=== PATIENT | female | born 1925 | race Caucasian/White ===

== ENCOUNTER 2017-02-28 17:02 | Inpatient (IN) | payer MEDICARE ==
--- NOTE | ~2017-02-28 | DS ---
Unit #: [id number] #: [id number] Patient: PRISCILA PEREZ [id number] [address] [address] [id number] MR#: [id number] NAME: PRISCILA PEREZ ROOM: 229 Age: 89 Sex: F Admission Date: 02/28/2017 : 1925 Discharge Date: 03/03/2017 Attending Physician: Matt Rasmussen M.D. Primary Care Physician: Thi Ordaz M.D. DISCHARGE SUMMARY ADDENDUM Please see "above" discharge summary for complete details of hospital course. Upon discharge, PT and OT evaluated the patient. She was noted to be very unsteady on gait. Therefore, both services recommended rehab at time of discharge, as they felt as though residing at home alone was not a safe disposition for her. Therefore, appropriate arrangements will be made for the patient to be discharged to a rehab facility once a bed is available. The remainder of her discharge medications, as well as hospital course, remains unchanged. Dictated by... Houston Morrison/jez TD: 03/04/2017 11:09 JOB #: [id number] DISCHARGE SUMMARY Page 1 of 1 X Matt Rasmussen MD DISCHARGE SUMMARY
--- NOTE | ~2017-02-28 | CT71 ---
[facility] A Service of [facility] RADIOLOGY TEXT RESULTS PATIENT: PRISCILA PEREZ LOCATION: [facility] : [birth year] UNIT #: [id number] AGE: [address]: Fan Oneill MD SEX: F ORDER DR: [id number] [facility] [address]. [place], [place] [address] [id number] E MR#: [id number] Acc #: [id number] NAME: PRISCILA PEREZ. : 1925 SEX: F STUDY DATE/TIME: 02/28/2017 18:29 UNIT: [facility] ROOM: STUDY DESCRIPTION: CT Head Wo Contrast Attending Physician: Javan Rivera M.D. Ordering Physician: Javan Rivera M.D. Primary Care Physician: Thi Ordaz M.D. MEDICAL IMAGING REPORT This report is preliminary unless electronic signature is present EXAM CT of abdomen and pelvis, 02/28. INDICATION Mental status changes with weakness and vomiting that started today. COMPARISON None. TECHNIQUE This CT exam was performed with one or more of the following radiation dose reduction techniques: automatic exposure control, adjustment of mA and/or kV according to patient size, and iterative reconstruction. FINDINGS Axial images were obtained from the base of the vertex without contrast. Ventricular size and configuration are normal. There is chronic small vessel ischemic disease in the white matter. There is an old left frontal infarct. There is no acute infarct or hemorrhage. There are no masses. Atherosclerotic calcifications are present in the carotid siphons. There is no skull fracture. Paranasal sinuses are clear. IMPRESSION 1. No acute findings. There is an old left frontal infarct and there is some chronic small vessel ischemic disease in the white matter. Dictated by... Angelito Gonzalez Jr., M.D. THIS IS AN ELECTRONICALLY VERIFIED REPORT [facility] A Service of [facility] RADIOLOGY TEXT RESULTS PATIENT: PRISCILA PEREZ LOCATION: [facility] : [birth year] UNIT #: [id number] AGE: [address]: Fan Oneill MD SEX: F ORDER DR: Angelito Gonzalez Jr. MAbhijit at 02/28/2017 9:45 PM CHIDI/gale TD: 02/28/2017 21:26 JOB #: [id number] MEDICAL IMAGING REPORT Page 1 of 1 COPY
--- NOTE | ~2017-02-28 | HP ---
Unit #: [id number] #: [id number] Patient: PRISCILA PEREZ [id number] [address] [place], [place] [address] [id number] I MR#: [id number] NAME: PRISCILA PEREZ. ROOM: 569 Age: 89 Sex: F Admission Date: 02/28/2017 : 1925 Attending Physician: Zane Bhakta M.D. Primary Care Physician: Thi Ordaz M.D. HISTORY AND PHYSICAL CHIEF COMPLAINT Change in mental status, weakness, vomiting x1 episode. DISCUSSION This is an 89-year-old female who has a past medical history of atrial flutter - on Eliquis, history of anemia, rheumatoid arthritis - on prednisone, dementia, hypertension, old left frontal infarct on CT scan. She was brought to the emergency room by family. She was found to be confused today, as per family that was available at bedside. She has not been taking medication. Did not take medication today, has been confused. She has been having some tears to left lower extremity; was told cellulitis. She said she was given some antibiotics. She did not tolerate. The antibiotic was given yesterday. Today she got worse, and she was brought to the emergency room. She had a CT scan, which shows old left frontal infarct. She is alert, oriented x0 at this time. Most of the information is obtained through the old chart and talking with the family. PAST MEDICAL HISTORY 1. History of atrial flutter, on Eliquis. 2. Degenerative joint disease. 3. Dementia. 4. History of rheumatoid arthritis, on chronic prednisone. 5. History of hypertension. 6. Old left frontal infarct on CT scan. 7. History of perforated appendicitis with intraabdominal abscess status post exploratory laparotomy and appendectomy in April 2016. 8. History of anemia. PAST SURGICAL HISTORY 1. History of perforated appendicitis with intraabdominal abscess status post exploratory laparotomy and appendectomy in April 2016. 2. Cholecystectomy. 3. Tonsillectomy. SOCIAL HISTORY She lives at home alone. Her daughter usually visits her on a daily basis. She used to smoke, but she is not smoking any more. She quit many years ago. She does not drink alcohol. No other illicit drug use. FAMILY HISTORY Noncontributory. ALLERGIES Penicillin. Unit #: [id number] #: [id number] Patient: PRISCILA PEREZ MEDICATIONS FROM HOME 1. Maxzide 37.5/25 daily. 2. Eliquis 2.5 mg daily. 3. Hydrocodone 5/325 q.6 hours p.r.n. 4. Hydroxyzine 25 mg 1 tablet q.8 hours p.r.n. 5. Prednisone 5 mg daily. 6. Exelon patch q.24 hours. REVIEW OF SYSTEMS All review of systems is negative except as in history of present illness. PHYSICAL EXAMINATION GENERAL: Elderly female lying in bed comfortably, currently not in any distress. She is alert, awake, oriented x1 at this time; she is answering questions. CURRENT VITALS: Temperature is 99.7, heart rate 85, respirations 14, blood pressure 104/45, oxygen 100% on room air. HEENT: Extraocular muscles intact. Pupils equally reactive to light and accommodation. NECK: Supple. No JVD. No thyromegaly. LUNGS: Clear to auscultation. HEART: S1, S2. Regular rate and rhythm. ABDOMEN: Abdomen is soft, nontender, nondistended. Bowel sounds positive. EXTREMITIES: Left lower leg on posterior aspect calf area positive skin tear with clotted blood under the skin tear and mild edema. NEUROLOGIC: Unable to do neuro exam secondary to patient cooperation. DIAGNOSTIC STUDIES LABORATORY WORKUP: Troponin less than 0.01. UA - cloudy appearance, leukocyte esterase positive, WBC 10-25. Sodium 139, potassium 3.8, chloride 102, glucose 115, BUN 26, creatinine 1.9, amylase and lipase normal. LFT within normal limits. INR is 1. White count 10, hemoglobin 11, hematocrit 34, platelets 266. IMAGING: CT scan shows old left frontal infarct. Abdominal CT - Nonspecific bowel gas pattern. No infiltrate. ASSESSMENT AND PLAN 1. UTI. Will start the patient on IV Levaquin. 2. Change in mental status. Most likely secondary to UTI. 3. Left lower leg calf cellulitis with skin tear. Will start the patient on vancomycin. Pharmacy to dose. 4. Acute on chronic kidney disease. Will hold Lasix, give some IV fluids, reevaluate in the morning. 5. History of atrial flutter, on Eliquis. 6. History of anemia. 7. History of rheumatoid arthritis, on prednisone. 8. Dementia. 9. Hypertension. 10. Old left frontal infarct on CT scan. 11. DVT prophylaxis. She has been on Eliquis. Dictated by Fan Oneill M.D. Unit #: [id number] #: [id number] Patient: PRISCILA PEREZ GREGORIO/jez TD: 03/01/2017 08:28 JOB #: [id number] HISTORY AND PHYSICAL Page 1 of 1 X X HISTORY AND PHYSICAL
--- NOTE | ~2017-02-28 | CR2 ---
[facility] A Service of [facility] RADIOLOGY TEXT RESULTS PATIENT: PRISCILA PEREZ LOCATION: [facility] 569-01 : [birth year] UNIT #: [id number] AGE: [address]: Zane Bhakta MD SEX: F ORDER DR: [id number] [facility] [address] [facility]. [place], [place] [address] [id number] E MR#: [id number] Acc #: [id number] NAME: PRISCILA PEREZ : 1925 SEX: F STUDY DATE/TIME: 02/28/2017 17:59 UNIT: [facility] ROOM: STUDY DESCRIPTION: CR Abdomen Acute Series Attending Physician: Javan Rivera M.D. Ordering Physician: Javan Rivera M.D. Primary Care Physician: Thi Ordaz M.D. MEDICAL IMAGING REPORT This report is preliminary unless electronic signature is present EXAM Acute abdomen series, 3 views, 02/28/17. HISTORY Generalized weakness and vomiting beginning yesterday with generalized abdominal pain. Benign essential hypertension and shortness of breath. FINDINGS Three views of the chest and abdomen demonstrate normal bowel gas pattern with no evidence of bowel obstruction or free air. There is a moderate amount of fecal matter in the colon. Surgical clips right upper quadrant suggest prior cholecystectomy. Degenerative change and scoliosis of the thoracolumbar spine. The heart is normal in size. Poor inspiratory result and elevation of the right hemidiaphragm with discoid atelectasis at the lung bases. Lungs are otherwise clear. There are no pleural effusions. IMPRESSION 1. Nonspecific bowel gas pattern. No evidence of bowel obstruction or free air. 2. No active pulmonary disease. Dictated by... Chon Aguiar M.D. THIS IS AN ELECTRONICALLY VERIFIED REPORT Chon Aguiar M.D. at 03/01/2017 2:14 PM CLAUDE/gale TD: 02/28/2017 20:45 JOB #: [id number] [facility] A Service of [facility] RADIOLOGY TEXT RESULTS PATIENT: PRISCILA PEREZ LOCATION: [facility] 569-01 : [birth year] UNIT #: [id number] AGE: [address]: Zane Bhakta MD SEX: F ORDER DR: MEDICAL IMAGING REPORT Page 1 of 1 COPY
--- NOTE | ~2017-02-28 | DS ---
Unit #: [id number] #: [id number] Patient: PRISCILA MADISON [id number] [address] [place], [place] [address] [id number] I MR#: [id number] NAME: PRISCILA MADISON ROOM: 569 Age: 89 Sex: F Admission Date: 02/28/2017 : 1925 Discharge Date: 03/02/2017 Attending Physician: Matt Rasmussen M.D. Primary Care Physician: Thi Ordaz M.D. DISCHARGE SUMMARY REASON FOR ADMISSION Mental status change, weakness. HISTORY OF PRESENT ILLNESS/HOSPITAL COURSE The patient is an 89-year-old female with past medical history of atrial flutter/fibrillation on chronic anticoagulation, anemia, rheumatoid arthritis, as well as dementia, who resides at home alone. Apparently she was having difficulty ambulating. Patient's daughter who resides several home down the street came to check up on her mother and noted that she had profound weakness and subsequently brought her to the hospital for further evaluation. Daughter states that previously she had been seen twice in the emergency room secondary to lower extremity lacerations and/or chronic wounds, was told both time routine wound care was recommended and VNA services were following but no antibiotics were prescribed. She apparently took her mother to her primary care physician and was given a prescription for Levaquin I believe and subsequently started taking them and developed some vomiting after nausea for several hours, as well as profound weakness. While she was evaluated in the emergency room she was alert and oriented x0. She was profoundly weak and she underwent a CT head, which did not show any acute process. Did show a prior left frontal infarct. She was subsequently admitted for the same. She was placed on telemetry floor. Routine laboratory studies were ascertained. She was placed on vancomycin and Levaquin. Her wounds were assessed and appropriate dressing was placed. Laboratory studies were relatively unremarkable. He creatinine was 1.5 at the time of discharge, which likely represents the patient's baseline hemoglobin of 10.2. Her initial urinalysis was positive; however ultimately the urine culture did not yield any acute bacterial growth. At the present time she is alert and oriented x2, which appears to be the baseline for the patient. I did speak to the patient's daughter, Ms. Smart, as well. We will have physical therapy evaluate Ms. Madison prior to discharge. At this point in time and after physical therapy clears the patient she will be discharged home. FINAL DISCHARGE DIAGNOSES 1. Mental status change likely secondary to vomiting episode secondary to antibiotics. Unit #: [id number] #: [id number] Patient: PRISCILA MADISON 2. Left lower extremity laceration. 3. Bilateral lower extremity chronic wounds. 4. Recurrent lower extremity cellulitis. 5. Dementia. 6. Degenerative joint disc disease. 7. Rheumatoid arthritis. 8. Hypertension. 9. Prior cerebrovascular accident. 10. Anemia. 11. Chronic kidney disease. 12. Baseline creatinine of 1.5. DISCHARGE MEDICATIONS 1. Prednisone 5 mg p.o. daily. 2. Eliquis 2.5 mg p.o. b.i.d. 3. Lasix 20 mg p.o. Thursday, Thursday, and Thursday. 4. Triamterene/HCTZ 37.5/25 one tablet p.o. daily. 5. [place] 5/325 1 tablet p.o. q.6 p.r.n. 6. Exelon patch q. 24. 7. Doxycycline 100 mg p.o. b.i.d. x7 day. DISCHARGE CONDITION Stable. DISCHARGE DISPOSITION Home with VNA services. Dictated by... Houston Morrison/apurva TD: 03/02/2017 12:06 JOB #: [id number] DISCHARGE SUMMARY Page 1 of 1 X Matt Rasmussen MD X DISCHARGE SUMMARY
--- NOTE | ~2017-02-28 | EKG ---
PATIENT: PRISCILA PEREZ UNIT #: [id number] Ventricular Rate: 69 BPM Atrial Rate: 69 BPM P-R Interval: 132 ms QRS Duration: 86 ms Q-T Interval: 372 ms QTC Calculation(Bezet): 398 ms Calculated R [place]: -23 degrees Calculated T [place]: 47 degrees Diagnosis Line: Normal sinus rhythm Diagnosis Line: Inferior infarct (cited on or before 15-APR-2016) Diagnosis Line: Abnormal ECG Diagnosis Line: When compared with ECG of 15-APR-2016 04:04, Diagnosis Line: Nonspecific T wave abnormality now evident in Diagnosis Line: Inferior leads Diagnosis Line: Inverted T waves have replaced nonspecific T wave Diagnosis Line: abnormality in Anterior leads Diagnosis Line: Confirmed by ESTEPHANIA TRINIDAD MD ([id number]) on Diagnosis Line: 03/03/2017 3:15:33 PM INTERPRETING MD: VIVI FERNANDO
[~2017-02-28 17:02] MED LIST: DYRENIUM100 MG PO; ELIQUIS2.5 MG PO; EXELON4.6 MG TD; HYDROCODON-ACE1 EAC7 PO; HYDROXYZINE PAM25 MG PO; PREDNISONE5 MG PO; TRIAMTERENE-HC1 EAC1 PO; VICODIN PO
[2017-02-28 18:24] LABS: BASOPHIL# 0.1 X10e3 (0-0.3); BASOPHIL% 0.8 % (0-2.5); EOSINOPHIL% 0.5 % (0.0-7.0); HEMATOCRIT 34.7 % (35.0-45.0); HEMOGLOBIN 11.4 gm/dL (12.0-16.0); LYMPHOCYTE# 0.9 X10e3 (1.0-3.5); LYMPHOCYTE% 8.6 % (17.0-45.0); MEAN CORPUSCULAR HEMOGLOBIN 30.8 PG (28-34); MEAN CORPUSCULAR HGB CONC 32.8 g/dL (30-36); MONOCYTE# 0.9 X10e3 (0-1.0); MONOCYTE% 8.3 % (3.0-12.0); NEUTROPHIL# 8.3 X10e3 (1.5-7.1); NEUTROPHIL% 81.8 % (40-75); PLATELET COUNT 266 X10e3 (140-420); RED BLOOD COUNT 3.69 X10e (3.90-5.30); RED CELL DISTRIBUTION WIDTH 14.9 % (11.0-15.5); WHITE BLOOD COUNT 10.2 X10e3 (4.0-10.5)
[2017-02-28 18:26] LABS: DIFF IND NO
[2017-02-28 18:36] LABS: PARTIAL THROMBOPLASTIN TIME 25.5 SECONDS (23.5-31.3)
[2017-02-28 18:55] LABS: ALBUMIN SERUM 3.5 g/dL (3.5-5.0); BILIRUBIN, DIRECT 0.1 mg/dL (0.0-0.2); BILIRUBIN,INDIRECT 0.5 mg/dL (0.0-0.9); BILIRUBIN,TOTAL 0.6 mg/dL (0.2-2.0); BUN/CREATININE RATIO 13.68; CREATININE SERUM 1.9 mg/dL (0.6-1.4); POTASSIUM 3.8 mmol/L (3.5-5.1); PROTEIN TOTAL SERUM 6.4 g/dL (6.0-8.3)
[2017-02-28 19:17] LABS: URINE SOURCE CLEAN CATCH
[2017-02-28 19:24] LABS: URINE APPEARANCE CLEAR; URINE BILIRUBIN NEG (NEG); URINE BLOOD NEG (NEG); URINE COLOR YELLOW; URINE GLUCOSE NEG (NEG); URINE KETONE TRACE (NEG); URINE LEUKOCYTE ESTERASE 1+ (NEG); URINE NITRATE NEG (NEG); URINE PROTEIN TRACE (NEG); URINE SPECIFIC GRAVITY 1.016 (1.003-1.035); URINE UROBILINOGEN 0.2 MG/DL (NEG)
[2017-02-28 19:26] LABS: CULTURE INDICATED? YES; URBCS1 AUWI 0-2 /[HPF] (0-2); URINE BACTERIA AUWI NEG (NEGATIVE); URINE SQUAMOUS EPITHELIAL CELL OCC /[HPF]
[2017-02-28 19:34] LABS: POC - CKMB <1.0 ng/mL (0.0-7.9); POC - TROPONIN <0.05 ng/mL (<=0.05)
[2017-02-28 20:36] LABS: POC - CKMB <1.0 ng/mL (0.0-7.9); POC - TROPONIN <0.05 ng/mL (<=0.05)
[2017-02-28] MEDS ORDERED: PREDNISONE5 M1 PO (22:19)
[2017-02-28] MEDS ORDERED: HYDROCODON-ACE1 EAC7 PO (22:20)
[2017-02-28] MEDS ORDERED: HYDROXYZINE HCL25 M1 PO (22:21)
[2017-02-28] MEDS ORDERED: ELIQUIS2.5 MG PO (22:22)
[2017-02-28] MEDS ORDERED: TRIAMTERENE-HC1 EAC1 PO (22:24)
[2017-02-28] MEDS ORDERED: EXELON1 EAC1 TD (22:29)
[2017-03-01] MEDS ORDERED: LASIX20 MG PO (07:24)
[2017-03-01 08:22] LABS: BASOPHIL# 0.1 X10e3 (0-0.3); BASOPHIL% 0.9 % (0-2.5); DIFF IND NO; EOSINOPHIL% 0.5 % (0.0-7.0); HEMATOCRIT 31.1 % (35.0-45.0); HEMOGLOBIN 10.2 gm/dL (12.0-16.0); LYMPHOCYTE# 1.5 X10e3 (1.0-3.5); LYMPHOCYTE% 18.3 % (17.0-45.0); MEAN CELL VOLUME 93.3 FL (83-96); MEAN CORPUSCULAR HEMOGLOBIN 30.6 PG (28-34); MEAN CORPUSCULAR HGB CONC 32.8 g/dL (30-36); MEAN PLATELET VOLUME 7.9 FL (6.5-11.5); MONOCYTE# 1.1 X10e3 (0-1.0); MONOCYTE% 13.6 % (3.0-12.0); NEUTROPHIL# 5.5 X10e3 (1.5-7.1); NEUTROPHIL% 66.7 % (40-75); PLATELET COUNT 243 X10e3 (140-420); RED BLOOD COUNT 3.34 X10e (3.90-5.30); RED CELL DISTRIBUTION WIDTH 14.6 % (11.0-15.5); WHITE BLOOD COUNT 8.2 X10e3 (4.0-10.5)
[2017-03-01 08:44] LABS: BUN/CREATININE RATIO 18.66; CALCIUM SERUM 8.7 mg/dL (8.4-10.2); CREATININE SERUM 1.5 mg/dL (0.6-1.4); GLOM FILT RATE Estimated 30.6 mL/min (>60)
[2017-03-03 06:40] LABS: CREATININE SERUM 1.4 mg/dL (0.6-1.4); GLOM FILT RATE Estimated 33.2 mL/min (>60)
== END 2017-03-03 16:10 | DRG 603 ==
LOC: CED 17:02 → CEDOF 20:20 → CED 21:27 → CEDOF 21:27 → C5C 03-01 00:41 → C2A 03-03 11:23
PROVIDERS: Emergency Medicine; Family Medicine
DX: L03.116 Cellulitis of left lower limb (principal); N17.9 Acute kidney failure, unspecified; I48.92 Unspecified atrial flutter; S81.812A Laceration without foreign body, left lower leg, initial encounter; F03.90 Unspecified dementia, unspecified severity, without behavioral disturbance, psychotic disturbance, mood disturbance, and anxiety; X58.XXXA Exposure to other specified factors, initial encounter; R41.82 Altered mental status, unspecified; T37.8X5A Adverse effect of other specified systemic anti-infectives and antiparasitics, initial encounter; R11.2 Nausea with vomiting, unspecified; M19.90 Unspecified osteoarthritis, unspecified site; M06.9 Rheumatoid arthritis, unspecified; Z86.73 Personal history of transient ischemic attack (TIA), and cerebral infarction without residual deficits; I12.9 Hypertensive chronic kidney disease with stage 1 through stage 4 chronic kidney disease, or unspecified chronic kidney disease; N18.9 Chronic kidney disease, unspecified; D64.9 Anemia, unspecified; I48.91 Unspecified atrial fibrillation; Z79.01 Long term (current) use of anticoagulants; Z87.891 Personal history of nicotine dependence; Z90.49 Acquired absence of other specified parts of digestive tract; Z88.0 Allergy status to penicillin; R29.6 Repeated falls; M62.3 Immobility syndrome (paraplegic)
CPT/HCPCS: 36415; 51701; 70450; 74022; 80048; 80076; 80202; 81003; 82550; 82553; 82565; 82947; 83605; 83690; 83880; 84484; 84520; 85025; 85610; 85730; 87086; 93005; 97110; 97116; 97162; 97166; 97530; 99285; G8978-GP; G8979-GP; G8987-GO; G8988-GO; J1956; J2405; J3370

== ENCOUNTER 2017-03-06 01:44 | Emergency (ER) | payer MEDICARE ==
--- NOTE | ~2017-03-06 | CT4 ---
[facility] A Service of [facility] RADIOLOGY TEXT RESULTS PATIENT: PRISCILA PEREZ LOCATION: [facility] : [birth year] UNIT #: [id number] AGE: [address]: Wyatt Silverman DO SEX: F ORDER DR: [id number] [place] [id number] [facility]. [place], [place] [address] [id number] E MR#: [id number] Acc #: [id number] NAME: PRISCILA PEREZ : 1925 SEX: F STUDY DATE/TIME: 03/06/2017 4:44 UNIT: [facility] ROOM: STUDY DESCRIPTION: CT Abd and Pelv Wo Cont Attending Physician: Wyatt Silverman D.O. Ordering Physician: Wyatt Silverman D.O. Primary Care Physician: Thi Ordaz M.D. MEDICAL IMAGING REPORT This report is preliminary unless electronic signature is present EXAM CT abdomen and pelvis without contrast INDICATION Right-sided abdominal pain for the past [address] of the abdomen and pelvis. This CT examination was performed with one or more of the following radiation dose reduction techniques: automatic exposure control, adjustment of mA and/or kV according to patient size, and iterative reconstruction. COMPARISON 04/14/2016. FINDINGS ABDOMEN WITHOUT CONTRAST: Included lung bases clear. Partially included what appears to be patulous mid esophagus. The liver, spleen unremarkable. Atrophy of the kidneys with a cyst in the upper pole of the left kidney. The adrenal glands are unremarkable. Atrophy of the pancreas. Previous cholecystectomy. Uncomplicated colonic diverticulosis. PELVIS WITHOUT CONTRAST: No pelvic mass or fluid. Garland catheter in the bladder. No aggressive appearing bone lesion. IMPRESSION 1. No acute findings in the abdomen or pelvis. 2. Uncomplicated colonic diverticulosis. Dictated by... [facility] A Service [facility] RADIOLOGY TEXT RESULTS PATIENT: PRISCILA PEREZ LOCATION: [facility] : [birth year] UNIT #: [id number] AGE: [address]: Hottman,Wyatt M DO SEX: F ORDER DR: Campos Vilchis M.D. THIS IS AN ELECTRONICALLY VERIFIED REPORT Campos Vilchis M.D. at 03/09/2017 7:20 AM NEIL/vandana TD: 03/06/2017 09:56 JOB #: [id number] MEDICAL IMAGING REPORT Page 1 of 1 COPY
[~2017-03-06 01:44] MED LIST changes: +EXELON1 EAC1 TD; +HYDROXYZINE HCL25 M1 PO; +LASIX20 MG PO; +PREDNISONE5 M1 PO
[2017-03-06 03:38] LABS: URINE SOURCE CLEAN CATCH
[2017-03-06 03:44] LABS: BASOPHIL# 0.1 X10e3 (0-0.3); BASOPHIL% 1.2 % (0-2.5); EOSINOPHIL# 0.1 X10e3 (0-0.7); EOSINOPHIL% 1.4 % (0.0-7.0); HEMATOCRIT 33.6 % (35.0-45.0); HEMOGLOBIN 11.1 gm/dL (12.0-16.0); LYMPHOCYTE# 1.6 X10e3 (1.0-3.5); LYMPHOCYTE% 22.2 % (17.0-45.0); MEAN CELL VOLUME 93.1 FL (83-96); MEAN CORPUSCULAR HEMOGLOBIN 30.7 PG (28-34); MEAN CORPUSCULAR HGB CONC 32.9 g/dL (30-36); MEAN PLATELET VOLUME 8.7 FL (6.5-11.5); MONOCYTE# 0.9 X10e3 (0-1.0); MONOCYTE% 12.9 % (3.0-12.0); NEUTROPHIL# 4.4 X10e3 (1.5-7.1); NEUTROPHIL% 62.3 % (40-75); PLATELET COUNT 283 X10e3 (140-420); RED BLOOD COUNT 3.61 X10e (3.90-5.30); WHITE BLOOD COUNT 7.1 X10e3 (4.0-10.5)
[2017-03-06 03:52] LABS: DIFF IND NO
[2017-03-06 03:53] LABS: URINE APPEARANCE CLEAR; URINE BILIRUBIN NEG (NEG); URINE BLOOD NEG (NEG); URINE COLOR YELLOW; URINE GLUCOSE NEG (NEG); URINE KETONE NEG (NEG); URINE LEUKOCYTE ESTERASE 1+ (NEG); URINE NITRATE NEG (NEG); URINE PH 5.5 (5-8); URINE PROTEIN NEG (NEG); URINE SPECIFIC GRAVITY 1.019 (1.003-1.035); URINE UROBILINOGEN 0.2 MG/DL (NEG)
[2017-03-06 03:56] LABS: URBCS1 AUWI 0-2 /[HPF] (0-2); URINE BACTERIA AUWI NEG (NEGATIVE); URINE SQUAMOUS EPITHELIAL CELL OCC /[HPF]; UWBCS1 AUWI 0-2 (0-5)
[2017-03-06 03:57] LABS: CULTURE INDICATED? NO
[2017-03-06 04:12] LABS: ALBUMIN SERUM 3.5 g/dL (3.5-5.0); BILIRUBIN, DIRECT 0.1 mg/dL (0.0-0.2); BILIRUBIN,INDIRECT 0.3 mg/dL (0.0-0.9); BILIRUBIN,TOTAL 0.4 mg/dL (0.2-2.0); BUN/CREATININE RATIO 22.66; CALCIUM SERUM 9.2 mg/dL (8.4-10.2); CREATININE SERUM 1.5 mg/dL (0.6-1.4); GLOM FILT RATE Estimated 30.6 mL/min (>60); POTASSIUM 3.2 mmol/L (3.5-5.1); PROTEIN TOTAL SERUM 6.2 g/dL (6.0-8.3)
[2017-03-06 05:56] LABS: POC - CKMB <1.0 ng/mL (0.0-7.9); POC - TROPONIN <0.05 ng/mL (<=0.05)
== END 2017-03-06 07:08 | disposition home or self-care (01) ==
LOC: CED 01:44
PROVIDERS: Emergency Medicine
DX: R10.84 Generalized abdominal pain (principal); R11.0 Nausea; R33.9 Retention of urine, unspecified; I48.91 Unspecified atrial fibrillation; I48.92 Unspecified atrial flutter; I10 Essential (primary) hypertension; Z90.49 Acquired absence of other specified parts of digestive tract; Z98.890 Other specified postprocedural states
CPT/HCPCS: 36415; 51702; 74176; 80048; 80076; 81003; 82553; 83690; 84484; 85025; 96374; 99284; J2405

== ENCOUNTER 2017-04-17 21:25 | Inpatient (IN) | payer MEDICARE, OTHER ==
[~2017-04-17] VITALS: Ht 157.5 cm; Wt 54.3 kg
--- NOTE | ~2017-04-17 | CO ---
Unit #: [id number] #: [id number] Patient: PRISCILA PEREZ [id number] [facility] [address] [facility] [address] [facility]. [place], [place] [address] [id number] Kit MR#: [id number] NAME: PRISCILA PEREZ. ROOM: 311 Age: 89 Sex: F Admission Date: 04/17/2017 : 1925 Attending Physician: Carleen To M.D. Primary Care Physician: Thi Ordaz M.D. Consultation Date: 04/18/2017 CONSULTATION REPORT PRIMARY CARE PHYSICIAN Thi Ordaz M.D. PATIENT IDENTIFICATION This is an 89-year-old apparently right-handed, white female, who is evaluated at room 311 at [facility]. SOURCE OF INFORMATION The medical records and evaluation done by admitting team and my discussion with the patient's nurse from [facility]. PROBLEM LIST 1. She has dementia. 2. History of degenerative joint disease and rheumatoid arthritis. 3. History of atrial fibrillation and atrial flutter. She is on Eliquis. 4. Rheumatoid arthritis, on chronic prednisone. 5. History of hypertension. 6. Old left frontal infarct on CAT scan. 7. History of anemia. 8. Chronic kidney disease, history of hypothyroidism, history of perforated appendix with appendicitis and intraabdominal abscess. 9. History of past exploratory laparotomy in 04/2015. 10. Tonsillectomy. 11. Cholecystectomy. 12. C diff and she was on Metrozole. 13. Acute on chronic kidney disease, possibility of UTI. HISTORY OF PRESENT ILLNESS This is an 89-year-old female, who actually was brought in via EMS and the history is that she is in retirement and she was working today with physical therapy when she felt generalized weakness and lied on the floor and then she had shaking. I called the nurse and they are saying generalized shaking, but then never reported that she had loss of consciousness, loss of bowel or bladder control. She was brought in and she is still very tremulous. She recently had UTI. She may have UTI again and she has acute on chronic renal issues, but I am not seeing anything focal. She is only on Eliquis. She has had prior stroke, but nothing new is shown. She has cognitive changes, so history is very sketchy. No recent fall that I could say and she may be exercising with physical therapy when this happened. Unit #: [id number] #: [id number] Patient: PRISCILA PEREZ No prior history of epilepsy. Vital signs are stable. She is afebrile. No change in medication. Nothing suggesting major other infection. PAST MEDICAL HISTORY As discussed above. PAST SURGICAL HISTORY As discussed above. ALLERGIES Aspirin. HOME MEDICATIONS Hydroxyzine 25 mg q.6 hours p.r.n., Flomax 0.4 mg daily, Zofran 4 mg q.6 hours p.r.n., Tums one tablet t.i.d., Tylenol 650 q.6 hours p.r.n., hydrocodone 5/325, Lasix 20 mg, Exelon patch one daily, metronidazole 250 mg t.i.d., Eliquis 2.5 mg b.i.d., omeprazole 20 mg daily, levothyroxine 125 mcg daily, calcium 1 tablet t.i.d., potassium chloride 10 mEq daily, prednisone 5 mg daily, Maxzide. FAMILY HISTORY Details not available. SOCIAL HISTORY Currently lives in retirement. She used to smoke but quit many years ago. No alcohol or drug use. REVIEW OF SYSTEMS Very questionable because of her cognitive changes. She cannot tell me any details. She has recently had UTIs, but again nothing I could get from her that she has any headaches, any neck pain, any chest pain, any shortness of air, any nausea, vomiting, diarrhea, or constipation. She has C diff probable secondary to antibiotics, but I cannot say anything more than that. Some arthritis. No back pain. Psychiatric issue, currently no change. Neurologic issue was cognitive changes and no other hematologic, dermatologic, or endocrine issues known to me. PHYSICAL EXAMINATION VITAL SIGNS: Temperature 98 degrees Fahrenheit, pulse is 102, respirations 16, blood pressure 125/77, O2 saturations were 94% to 99%. Weight of 116 pounds. BMI was 21. NEUROLOGIC: The patient is awake. She is alert. She thinks either she is at [facility]. She cannot tell me the date. She can name. She can follow commands. No right or left confusion. No finger agnosia. Cranial examination demonstrates respond to threats in all bhatti. Eye movements are conjugate. I did not see any ptosis. I did not see any nystagmus. Extraocular movements are intact. Sensation on the face and scalp are normal. Strength of muscles of facial expression normal. Hearing seemed to be intact bilaterally. Tongue was midline. I could not visualize the oropharynx or uvula. Head turning was spontaneous. Motor examination demonstrated normal bulk and tone. Strength was 5-/5. Unit #: [id number] #: [id number] Patient: PRISCILA PEREZ Sensory examination intact for soft touch and pain sensation. No extinction was seen. Romberg was not evaluated. Gait examination was deferred. I could not get any reflexes. Toes are equivocal. DIAGNOSTIC STUDIES LABORATORY RESULTS: Random glucose was 184, BUN was 31, creatinine was 2.0. White count was 12.7, platelet count was 305. Urinalysis showed leukocyte esterase positive, nitrites positive, 5 to 10 wbc's. IMAGING STUDIES: Head CT was reviewed. IMPRESSION This is a very interesting 89-year-old female with cognitive changes, other issues, she was shaking. She is a bit tremulous right now. She may have urinary tract infection. She has acute on chronic renal issues. So far, I have not been convinced that this is epileptic event. Even if it was, it is the first time event. My recommendation is to continue other medical management, have an EEG done inpatient or outpatient. If it shows something, can be treated otherwise blindly I am not going to treat her. She did not have loss of consciousness. I will observe her. If the history changes or there are further events, definitely we will change our assessment and treatment plans. She has prior stroke, but she is on Eliquis. Nothing suggesting TIA. Nothing suggesting to me other infections. Call me for any other questions, issues, or concerns. Further treatment will be based on how she does and as far as I am concerned, she may be transferred back to her facility. If there is any other issue, please feel free to call me anytime. Dictated by... Houston Mcadams/geovanni TD: 04/21/2017 05:23 JOB #: [id number] CONSULTATION REPORT Page 1 of 1 X Delia Vasquez MD CONSULTATION REPORT
--- NOTE | ~2017-04-17 | DS ---
Unit #: [id number] #: [id number] Patient: PRISCILA PEREZ [id number] [address] [address] [id number] I MR#: [id number] NAME: PRISCILA PEREZ ROOM: 311 Age: 89 Sex: F Admission Date: 04/17/2017 : 1925 Discharge Date: Attending Physician: Carleen To M.D. Primary Care Physician: Thi Ordaz M.D. DISCHARGE SUMMARY DISCHARGE DIAGNOSES 1. Acute kidney injury. 2. Chronic kidney disease stage 3. 3. Providencia urinary tract infection. 4. Recent Clostridium difficile. 5. No seizures as per Neurology. 6. History of atrial fibrillation, on Eliquis. 7. History of chronic anemia. 8. Rheumatoid arthritis. Patient is on long-term prednisone. 9. Degenerative joint disease. 10. Dementia, likely Alzheimer. 11. History of cerebrovascular accident with left frontal lobe infarct. 12. Hypertension. 13. Hypothyroidism. 14. Hypokalemia. 15. Mild protein malnutrition. 16. Mild metabolic acidosis. CONSULTATION Dr. Vasquez. PROCEDURES None. DIAGNOSTIC STUDIES LABORATORY: Sodium 137, potassium 3.4, and creatinine 1.7. WBC 12.9, hemoglobin 11.4, and platelets 308,000. Urine culture is growing Providencia stuartii. IMAGING: CT scan of the head shows no acute abnormalities. Chronic small vessel disease changes present. NEUROLOGY: EEG shows likely normal EEG. It shows subtle slowing nonspecific. ALLERGIES Penicillin. DISCHARGE MEDICATIONS 1. Prednisone 5 mg p.o. daily. 2. Flomax 0.4 p.o. daily. 3. Tylenol 650 q.6 p.r.n. pain. 4. Eliquis 2.5 p.o. b.i.d. 5. Zofran 4 mg q.6 p.r.n. nausea. Unit #: [id number] #: [id number] Patient: PRISCILA PEREZ 6. Hydroxyzine 25 q.6 p.r.n. anxiety. 7. Flagyl 250 p.o. 3 times daily, complete the course for total of 14 days, start date unavailable for me. Rehab M.D. to check. 8. Lortab 5 mg q.6 p.r.n. pain. 9. Exelon 4.6 mg transdermal daily. 10. Maxzide 37.5/25 at 1 tablet daily. 11. Omeprazole 20 daily. 12. Calcium with vitamin D 1 tablet 3 times daily. 13. Calcium carbonate 750 at 3 times daily. 14. Potassium 10 mEq daily. 15. Synthroid 125 mcg p.o. daily. 16. MiraLax 17 g p.o. daily p.r.n. constipation. HOSPITAL COURSE An 89-year-old admitted with seizure-like activity. Acute kidney injury with prerenal dehydration. She does have a history of chronic kidney disease stage 3. Patient received IV fluids. Creatinine is stable. Providencia urinary tract infection. Patient received IV cefepime which it is sensitive to. She completed her course. Recent C. difficile infection. Patient is on Flagyl. I am not sure when she will complete her 14 days; M.D. at rehab to check on that. She did have Flagyl on her home medication. Hypokalemia. Replaced with p.o. potassium. Seizure-like activity. Patient was seen by Dr. Vasquez. EEG shows nonspecific changes, and seizures have been ruled out by Dr. Vasquez. He does not think patient needs any antiseizure medications. Discussed with daughter in detail. Patient will be discharged to rehab after the last dose of cefepime today. Discharge time taken is 32 minutes. Dictated by... Houston Venegas/abdirahman TD: 04/22/2017 15:40 JOB #: [id number] DISCHARGE SUMMARY Page 1 of 1 X Carleen To MD X DISCHARGE SUMMARY
--- NOTE | ~2017-04-17 | HP ---
Unit #: [id number] #: [id number] Patient: PRISCILA PEREZ [id number] [facility] [address] [facility]. [place], [place] [address] [id number] I MR#: [id number] NAME: PRISCILA PEREZ. ROOM: 311 Age: 89 Sex: F Admission Date: 04/17/2017 : 1925 Attending Physician: Carleen To M.D. Primary Care Physician: Thi Ordaz M.D. HISTORY AND PHYSICAL CHIEF COMPLAINT Patient was sent from prison, further evaluation of generalized shaking. DISCUSSION This is an 89-year-old female with history of atrial fibrillation, atrial flutter, anemia, rheumatoid arthritis, degenerative joint disease, dementia, history of cerebrovascular accident with left frontal lobe infarct, hypertension, chronic kidney disease, history of C. difficile recently in the prison. She was here at [facility] from 02/28 to 03/03, and at that time she was admitted for urinary tract infection, deconditioning, weakness, eventually she was sent to the prison for rehab. She is in the prison currently. 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 She has no fever, no chills. She denies any other complaint but has underlying dementia. PAST MEDICAL HISTORY 1. History of degenerative joint disease/rheumatoid arthritis. 2. History of atrial fibrillation/atrial flutter on Eliquis. 3. Dementia. 4. Rheumatoid arthritis on chronic prednisone. 5. History of hypertension. 6. Old left frontal infarct on CT scan. 7. History of anemia. 8. Chronic kidney disease. 9. History of hypothyroidism. PAST SURGICAL HISTORY 1. History of perforated appendicitis with intraabdominal abscess. 2. History of past exploratory lap peritoneal appendectomy in April 2016. 3. Tonsillectomy. 4. Cholecystectomy. SOCIAL HISTORY She currently lives in a prison. She used to smoke but she quit many years ago. She does not drink alcohol. No other illicit drug use. She is a DNR per code status. FAMILY HISTORY Unit #: [id number] #: [id number] Patient: PRISCILA PEREZ Noncontributory. ALLERGIES Aspirin. HOME MEDICATIONS Medications from home is the followin. Hydroxyzine 25 mg q.6h p.r.n. 2. Flomax 0.4 mg daily 3. Zofran 4 mg q.6h p.r.n. 4. TUMs one tablet three times daily 5. Tylenol 650 q.6h p.r.n. 6. Hydrocodone 5/325 one tablet q.6h p.r.n. 7. Lasix 20 mg on Thursday, Thursday, and Thursday 8. Exelon patch one patch daily 9. Metronidazole 250 three times daily 10. Eliquis 2.5 mg twice daily 11. Omeprazole 20 mg daily 12. Levothyroxine 125 mcg daily 13. Calcium one tablet three times daily 14. Potassium chloride 10 mEq daily 15. Prednisone 5 mg daily 16. Maxzide 37.5/25 mg one tablet daily REVIEW OF SYSTEMS All review of systems negative except as in history of present illness. PHYSICAL EXAMINATION GENERAL: Elderly female lying in the bed comfortably, currently not in any distress. She is alert, oriented x1, not in any distress. VITAL SIGNS: Current vitals are the following, temperature is afebrile, heart rate 83, respiratory rate 18, blood pressure 123/47, oxygen 95% on room air. HEENT EXM: Pupils equal reactive to light and accommodation. Head - Normocephalic and atraumatic. NECK: Supple. No jugular venous distention. No thyromegaly. HEART: S1 and S2, regular rate and rhythm. LUNGS: Clear to auscultation bilaterally. No rhonchi. No wheezing. ABDOMEN: Soft, nontender, and nondistended. Bowel sounds are positive. EXTREMITIES: Bilateral lower extremities positive for dressing. NEUROLOGIC: She is moving all extremities. DIAGNOSTIC STUDIES LABORATORY: Laboratory workup is the following, sodium 136, potassium 3.7, chloride 99, glucose 184, BUN 31, creatinine is 2, LFT within normal limits. White count 12, hemoglobin 12, hematocrit 39, platelets 305. IMAGING: CT head shows old left frontal lobe infarct. ASSESSMENT/PLAN 1. Questionable new onset seizures, will admit the patient and will get EEG and ask neurology, Dr. Vasquez to evaluate. 2. Pgisp-sn-mbjosoo kidney disease, I will give one liter of IV fluids, normal saline, recheck in the morning, baseline is around 1.5. 3. History of atrial fibrillation, atrial flutter on Eliquis. 4. History of anemia. 5. Rheumatoid arthritis/degenerative joint disease on prednisone 6. Dementia. Unit #: [id number] #: [id number] Patient: PRISCILA PEREZ 7. History of cerebrovascular accident with left frontal lobe infarct. 8. Hypertension. 9. Chronic kidney disease. 10. Hypothyroidism. 11. C. difficile on metronidazole. 12. DVT prophylaxis on Eliquis. Dictated by Houston Valentin TD: 04/18/2017 07:58 JOB #: [id number] HISTORY AND PHYSICAL Page 1 of 1 X X HISTORY AND PHYSICAL
--- NOTE | ~2017-04-17 | CT71 ---
[facility] A Service of [facility] RADIOLOGY TEXT RESULTS PATIENT: PRISCILA PEREZ LOCATION: [facility] : [birth year] UNIT #: [id number] AGE: [address]: Carleen To MD SEX: F ORDER DR: [id number] [place], [place] [address] [id number] I MR#: [id number] #: [id number] NAME: PRISCILA PEREZ. : 1925 SEX: F STUDY DATE/TIME: 04/17/2017 22:11 UNIT: [address] ROOM: [facility] STUDY DESCRIPTION: CT Head Wo Contrast Attending Physician: Abdirahman Jessica M.D. Ordering Physician: Angelito Demarco M.D. Primary Care Physician: Thi Ordaz M.D. MEDICAL IMAGING REPORT This report is preliminary unless electronic signature is present EXAM CT head, noncontrast, 04/17/2017 HISTORY 89-year-old female brought to the ED after a seizure today noted by her physical therapist. TECHNIQUE CT examination of the head was performed without IV contrast. This CT exam was performed with one or more of the following radiation dose reduction techniques: automatic control, adjustment of mA and/or kV according to patient size, and iterative reconstruction. FINDINGS No acute intracranial abnormality is demonstrated. Chronic left frontal lobe infarct. Minimal generalized cerebral atrophy and mild diffuse chronic low-attenuation white matter changes, nonspecific but likely related to chronic microvascular disease. These findings are stable since 02/28/2017. No evidence of intracranial hemorrhage, mass, mass effect, acute cerebral edema or hydrocephalus. IMPRESSION 1. No acute intracranial abnormality. 2. Chronic left frontal lobe infarct. 3. Mild diffuse chronic changes as noted above. 4. No change since 02/28/2017. Dictated by... Mitul Gonzáles M.D. [facility] A Service of [facility] RADIOLOGY TEXT RESULTS PATIENT: PRISCILA PEREZ LOCATION: [facility] : [birth year] UNIT #: [id number] AGE: [address]: Carleen To MD SEX: F ORDER DR: THIS IS AN ELECTRONICALLY VERIFIED REPORT Mitul Gonzáles M.D. at 04/18/2017 4:55 PM ZEINAB/helene TD: 04/18/2017 03:18 JOB #: [id number] MEDICAL IMAGING REPORT Page 1 of 1 COPY
--- NOTE | ~2017-04-17 | EE ---
Unit #: [id number] #: [id number] Patient: PRISCILA PEREZ [id number] [address] [address] [id number] I MR#: [id number] NAME: PRISCILA PEREZ. : 1925 SEX: F STUDY DATE/TIME: 04/20/2017 UNIT: [id number] ROOM: 311 STUDY DESCRIPTION: Attending Physician: Carleen To M.D. Primary Care Physician: Thi Ordaz M.D. NEURODIAGNOSTICS REPORT EXAM EEG. REFERRING PHYSICIAN Dr. Carleen To. REASON FOR STUDY Question about new-onset seizures. EEG DESCRIPTION This is an inpatient, digitally recorded, multimontage adult EEG with leads placed according to the international 10/20 system. Hyperventilation was not done. Photic stimulation was attempted. This EEG shows some 8 hertz activity but otherwise the patient became drowsy and fell asleep. There was some subtle slowing on the right side. There probably was an artifact at V4. Throughout the recording, there seemed to be a stable recurrent transient kind of activity which is probably an artifact, nothing suggesting clear cut interictal discharges or clinical events. No focal changes were seen other than discussed. No seizure or status. IMPRESSION Likely normal EEG with awake and drowsy and sleep state. An EEG like this does not rule out epilepsy. Because of subtle slowing, which is nonspecific, but please clinically correlate the patient's history and imaging studies and if needed a sleep deprived prolonged recording may be considered. Dictated by... Houston Mcadams/jayce TD: 04/22/2017 09:15 JOB #: [id number] Unit #: [id number] #: [id number] Patient: PRISCILA PEREZ NEURODIAGNOSTICS REPORT Page 1 of 1 X Delia Vasquez MD NEURODIAGNOSTICS REPORT
--- NOTE | ~2017-04-17 | A ---
[facility] Nutrition Therapy DATE: 04/18/17 Patient: PRISCILA PEREZ Physician: MORCAR Address: [address] Room/Bed: [address] [place] [address], Zip: [place] [address] Admit Date: 04/17/17 Date of : [birth year] Height: 5 2 Weight: 116 52.9 NUTRITIONAL ASSESSMENT: REASON: ONE NUTRITION RISK PT RE: PRESSURE ULCER/NON-HEALING WOUND PT IS 89 Y.O. FEMALE ADMITTED FOR ACUTE ON CKD, NEW ONSET SEIZURE PMH: DEMENTIA, HTN, CKD, RA, AFIB, PRIOR CVA, DJD, HYPOTHYROIDISM Anthropometrics: 5'2", WT: 140# (64 KG), BMI: 25.6 Labs: GLU: 184, BUN: 31, CREAT: 2.0, ALB: 3.1, GFR: 21.6 Meds: FUROSEMIDE, PROTONIX, OS-SAVANNA 250+D, SYNTHROID, TUMS, ZOFRAN, NACL, KCL I/O & Bowel function: 277/1 Skin Integrity: DRY SKIN NOTED ALL OVER BODY; BILATERAL LOWER EXTREMITY CHRONIC WOUNDS NOTED (PER RN AND CHART: BRUISES NOT CHRONIC WOUNDS) Assessment: CHART REVIEWED AND EVENTS NOTED. PT SEEN FOR WOUNDS. PT SLEEPY/LETHARGIC AT TIME OF VISIT, UNABLE TO PROVIDE DIET INTERVIEW. PER RN AND CHART, PT WAS ON REGULAR DIET + THINS AT [facility] TO ADMIT, NOTED TO HAVE FAIR PO INTAKE AND APPETITE. PT NODDED "YES" TO ENSURE PUDDING FOR ADDITIONAL PROTEIN AND KCAL. NO FAMILY IN ROOM AT TIME OF VISIT. RD TO REMAIN AVAILABLE. PER [employer], PT'S WEIGHTS RANGED ~138-147# IN FEBRUARY 2017. Dx: DECREASED NUTRIENT INTAKE R/T CURRENT CONDITION, PMH, ADVANCED AGE AEB CHART REVIEW. Intervention: 1. HH DIET 2. ENSURE PUDDING BID Monitoring, Evaluation and Goals: 1. ORAL INTAKE; CONSUME/TOLERATE >50% OF MEALS AND SUPPLEMENTS 2. WEIGHTS; PROMOTE WEIGHT MAINTENANCE 3. SKIN; PROMOTE SKIN HEALING 4. GI; PROMOTE REGULAR GI FUNCTION MONITOR: -PO INTAKE/APPETITE -SUPPLEMENT INTAKE -LABS Recommendations: [facility] Nutrition Therapy DATE: 04/18/17 Patient: PRISCILA PEREZ Physician: MORCAR Address: [address] Room/Bed: [facility] [facility], Zip: [place] [address] Admit Date: 04/17/17 Date of : [birth year] Height: 5 2 Weight: 116 52.9 1. PLEASE ORDER VANILLA ENSURE PUDDING BID W/MEALS 2. CONSIDER ADDING MVI W/MINERAL DAILY 2' ADVANCED AGE, FAIR PO INTAKE AND APPETITE 3. ENCOURAGE PO AND SUPPLEMENT INTAKE RD WILL F/U PER PROTOCOL PT IS MILDLY COMPROMISED Respectfully, RUDY LAMBERT MS, RD, LD [facility] cc: client file
--- NOTE | ~2017-04-17 | EKG ---
PATIENT: PRISCILA PEREZ UNIT #: [id number] Ventricular Rate: 76 BPM Atrial Rate: 76 BPM P-R Interval: 146 ms QRS Duration: 84 ms Q-T Interval: 364 ms QTC Calculation(Bezet): 409 ms P [place]: 28 degrees Calculated R [place]: -8 degrees Calculated T [place]: 51 degrees Diagnosis Line: Normal sinus rhythm Diagnosis Line: Minimal voltage criteria for LVH, may be normal Diagnosis Line: variant Diagnosis Line: Inferior infarct (cited on or before 15-APR-2016) Diagnosis Line: Abnormal ECG Diagnosis Line: When compared with ECG of 28-FEB-2017 18:06, Diagnosis Line: Nonspecific T wave abnormality no longer evident Diagnosis Line: in Inferior leads Diagnosis Line: Confirmed by ALONDRA RANDALL MD ([id number]) on Diagnosis Line: 04/18/2017 2:01:15 PM INTERPRETING MD: TONIA FERNANDO
[2017-04-17] MEDS ORDERED: LEVOXYL125 MC1 PO (21:33)
[2017-04-17] MEDS ORDERED: CALCIUM +D & M1 EACH PO (21:34)
[2017-04-17] MEDS ORDERED: PREDNISONE5 MG PO (21:35)
[2017-04-17] MEDS ORDERED: POTASSIUM CHLO10 MEQ PO (21:35)
[2017-04-17] MEDS ORDERED: LASIX20 MG PO (21:36)
[2017-04-17] MEDS ORDERED: MAXZIDE 37.5 M1 EACH PO (21:36)
[2017-04-17] MEDS ORDERED: EXELON4.6 MG TD (21:37)
[2017-04-17] MEDS ORDERED: FLAGYL PO (21:37)
[2017-04-17] MEDS ORDERED: ELIQUIS2.5 MG PO (21:37)
[2017-04-17] MEDS ORDERED: FLOMAX0.4 M1 PO (21:38)
[2017-04-17] MEDS ORDERED: ZOFRAN PO (21:38)
[2017-04-17] MEDS ORDERED: OMEPRAZOLE20 M1 PO (21:38)
[2017-04-17] MEDS ORDERED: TUMS500 MG PO (21:39)
[2017-04-17] MEDS ORDERED: TYL325 PO (21:40)
[2017-04-17] MEDS ORDERED: HYDROCODON-ACE1 EAC7 PO (21:40)
[2017-04-17] MEDS ORDERED: HYDROXYZINE PAM25 MG PO (21:41)
[2017-04-17 22:04] LABS: BASOPHIL# 0.1 X10e3 (0-0.3); BASOPHIL% 0.8 % (0-2.5); EOSINOPHIL# 0.6 X10e3 (0-0.7); EOSINOPHIL% 4.8 % (0.0-7.0); HEMATOCRIT 39.4 % (35.0-45.0); HEMOGLOBIN 12.7 gm/dL (12.0-16.0); LYMPHOCYTE# 1.3 X10e3 (1.0-3.5); LYMPHOCYTE% 10.1 % (17.0-45.0); MEAN CELL VOLUME 91.4 FL (83-96); MEAN CORPUSCULAR HEMOGLOBIN 29.6 PG (28-34); MEAN CORPUSCULAR HGB CONC 32.4 g/dL (30-36); MEAN PLATELET VOLUME 8.4 FL (6.5-11.5); MONOCYTE% 8.2 % (3.0-12.0); NEUTROPHIL# 9.7 X10e3 (1.5-7.1); NEUTROPHIL% 76.1 % (40-75); PLATELET COUNT 305 X10e3 (140-420); RED BLOOD COUNT 4.31 X10e (3.90-5.30); RED CELL DISTRIBUTION WIDTH 15.2 % (11.0-15.5); WHITE BLOOD COUNT 12.7 X10e3 (4.0-10.5)
[2017-04-17 22:07] LABS: DIFF IND NO
[2017-04-17 22:25] LABS: ALBUMIN SERUM 3.1 g/dL (3.5-5.0); ALKALINE PHOSPHATASE 63 U/L (32-92); ALT (SGPT) 22 U/L (10-40); AST (SGOT) 15 U/L (10-42); BILIRUBIN,TOTAL 0.2 mg/dL (0.2-2.0); BLOOD UREA NITROGEN 31 mg/dL (9-23); CALCIUM SERUM 9.1 mg/dL (8.4-10.2); CARBON DIOXIDE 28 mmol/L (22-31); CHLORIDE 99 mmol/L (100-111); GLOM FILT RATE Estimated 21.6 mL/min (>60); GLUCOSE FASTING 184 mg/dL (70-110); POTASSIUM 3.7 mmol/L (3.5-5.1); PROTEIN TOTAL SERUM 5.8 g/dL (6.0-8.3); SODIUM 136 mmol/L (135-145)
[2017-04-17 22:26] LABS: BILIRUBIN, DIRECT <0.1 mg/dL (0.0-0.2); BILIRUBIN,INDIRECT 0.1 mg/dL (0.0-0.9)
[2017-04-18 00:16] LABS: URINE SOURCE CATH
[2017-04-18 00:35] LABS: URBCS1 AUWI 0-2 /[HPF] (0-2); URINE APPEARANCE CLEAR; URINE BACTERIA AUWI NEG (NEGATIVE); URINE BLOOD NEG (NEG); URINE COLOR ORANGE; URINE GLUCOSE NEG (NEG); URINE KETONE NEG (NEG); URINE LEUKOCYTE ESTERASE 2+ (NEG); URINE NITRATE POS (NEG); URINE PROTEIN NEG (NEG); URINE SPECIFIC GRAVITY 1.026 (1.003-1.035); URINE SQUAMOUS EPITHELIAL CELL OCC /[HPF]; URINE UROBILINOGEN 0.2 MG/DL (NEG)
[2017-04-18 00:39] LABS: CULTURE INDICATED? YES
[2017-04-18 00:40] LABS: URINE AMORPHOUS SEDIMENT AMORP URATES
[2017-04-18 14:10] LABS: HEMATOCRIT 37.1 % (35.0-45.0); HEMOGLOBIN 11.8 gm/dL (12.0-16.0); MEAN CELL VOLUME 91.3 FL (83-96); MEAN CORPUSCULAR HEMOGLOBIN 29.1 PG (28-34); MEAN CORPUSCULAR HGB CONC 31.8 g/dL (30-36); MEAN PLATELET VOLUME 8.6 FL (6.5-11.5); RED BLOOD COUNT 4.07 X10e (3.90-5.30); RED CELL DISTRIBUTION WIDTH 15.1 % (11.0-15.5); WHITE BLOOD COUNT 12.1 X10e3 (4.0-10.5)
[2017-04-18 14:34] LABS: BUN/CREATININE RATIO 16.66; CREATININE SERUM 1.8 mg/dL (0.6-1.4); GLOM FILT RATE Estimated 24.5 mL/min (>60); POTASSIUM 4.6 mmol/L (3.5-5.1)
[2017-04-19 09:26] LABS: HEMATOCRIT 38.7 % (35.0-45.0); HEMOGLOBIN 12.1 gm/dL (12.0-16.0); MEAN CORPUSCULAR HGB CONC 31.2 g/dL (30-36); MEAN PLATELET VOLUME 8.9 FL (6.5-11.5); RED BLOOD COUNT 4.16 X10e (3.90-5.30); RED CELL DISTRIBUTION WIDTH 15.3 % (11.0-15.5); WHITE BLOOD COUNT 10.8 X10e3 (4.0-10.5)
[2017-04-19 09:56] LABS: BUN/CREATININE RATIO 17.64; CREATININE SERUM 1.7 mg/dL (0.6-1.4); GLOM FILT RATE Estimated 26.3 mL/min (>60); POTASSIUM 4.1 mmol/L (3.5-5.1)
[2017-04-20 05:50] LABS: HEMATOCRIT 35.9 % (35.0-45.0); HEMOGLOBIN 11.3 gm/dL (12.0-16.0); MEAN CELL VOLUME 92.1 FL (83-96); MEAN CORPUSCULAR HEMOGLOBIN 29.1 PG (28-34); MEAN CORPUSCULAR HGB CONC 31.6 g/dL (30-36); MEAN PLATELET VOLUME 8.8 FL (6.5-11.5); RED BLOOD COUNT 3.89 X10e (3.90-5.30); RED CELL DISTRIBUTION WIDTH 15.4 % (11.0-15.5)
[2017-04-20 06:46] LABS: ALBUMIN SERUM 2.7 g/dL (3.5-5.0); BILIRUBIN,TOTAL 0.4 mg/dL (0.2-2.0); BUN/CREATININE RATIO 16.47; CALCIUM SERUM 9.1 mg/dL (8.4-10.2); CREATININE SERUM 1.7 mg/dL (0.6-1.4); GLOM FILT RATE Estimated 26.3 mL/min (>60); POTASSIUM 4.4 mmol/L (3.5-5.1); PROTEIN TOTAL SERUM 5.3 g/dL (6.0-8.3)
[2017-04-22 05:14] LABS: HEMATOCRIT 36.8 % (35.0-45.0); HEMOGLOBIN 11.4 gm/dL (12.0-16.0); MEAN CELL VOLUME 93.8 FL (83-96); MEAN CORPUSCULAR HEMOGLOBIN 29.1 PG (28-34); MEAN CORPUSCULAR HGB CONC 31.1 g/dL (30-36); MEAN PLATELET VOLUME 9.1 FL (6.5-11.5); RED BLOOD COUNT 3.93 X10e (3.90-5.30); RED CELL DISTRIBUTION WIDTH 15.9 % (11.0-15.5); WHITE BLOOD COUNT 12.9 X10e3 (4.0-10.5)
[2017-04-22 05:48] LABS: BUN/CREATININE RATIO 14.7; CALCIUM SERUM 9.2 mg/dL (8.4-10.2); CREATININE SERUM 1.7 mg/dL (0.6-1.4); GLOM FILT RATE Estimated 26.3 mL/min (>60); POTASSIUM 3.4 mmol/L (3.5-5.1)
== END 2017-04-23 02:45 | DRG 683 ==
LOC: CED 21:25 → C3A PCU 23:30 → CEDOF 23:30 → CED 23:48 → CEDOF 23:48 → C3A PCU 04-18 00:38
PROVIDERS: Emergency Medicine; Internal Medicine
DX: N17.9 Acute kidney failure, unspecified (principal); A04.7 Enterocolitis due to Clostridium difficile; E44.0 Moderate protein-calorie malnutrition; I48.92 Unspecified atrial flutter; E87.2 Acidosis; F03.90 Unspecified dementia, unspecified severity, without behavioral disturbance, psychotic disturbance, mood disturbance, and anxiety; I48.91 Unspecified atrial fibrillation; B96.89 Other specified bacterial agents as the cause of diseases classified elsewhere; I12.9 Hypertensive chronic kidney disease with stage 1 through stage 4 chronic kidney disease, or unspecified chronic kidney disease; N18.3 Chronic kidney disease, stage 3 (moderate); M19.90 Unspecified osteoarthritis, unspecified site; M06.9 Rheumatoid arthritis, unspecified; Z86.73 Personal history of transient ischemic attack (TIA), and cerebral infarction without residual deficits; E03.9 Hypothyroidism, unspecified; Z90.49 Acquired absence of other specified parts of digestive tract; Z87.891 Personal history of nicotine dependence; Z79.01 Long term (current) use of anticoagulants; E87.6 Hypokalemia; Z68.24 Body mass index [BMI] 24.0-24.9, adult
CPT/HCPCS: 36415; 70450; 80048; 80053; 80076; 81003; 82947; 85025; 85027; 87086; 87088; 87186; 93005; 94760; 95816; 97110; 97116; 97162; 97166; 97530; 97535; 99285; G8978-GP; G8979-GP; G8987-GO; G8988-GO; J0692; J1956